=== PATIENT | female | born 1965 | race Caucasian/White ===

== ENCOUNTER 2016-12-17 21:31 | Emergency (ER) | payer SELFPAY ==
[2016-12-17 22:23] LABS: Hematocrit 37 % (35-47); Mean Corpuscular HGB Conc 32 g/dl (31-36); Mean Corpuscular Hemoglobin 28 pg (27-31); Mean Corpuscular Volume 86 fL (80-97); Mean Platelet Volume 11 um3 (7.4-10.4); Red Cell Distribution Width 15 % (10.5-15); White Blood Count 9.4 10^3/ul (3.5-10.8)
[2016-12-17 22:42] LABS: Albumin 4.2 g/dL (3.2-5.2); BUN/Creatinine Ratio 20.3 (8-20); Calcium 9.6 mg/dL (8.6-10.3); EGFR African American 139.3 (>60); EGFR Non-African American 108.3 (>60); Potassium 3.5 mmol/L (3.5-5.0); Total Bilirubin 0.3 mg/dL (0.2-1.0); Total Protein 7.2 g/dL (6.4-8.9)
--- NOTE | 2016-12-17 23:14 | ED ---
Tami Johnson Alok, scribed for Valentin Camacho MD on 12/17/16 at 2144 . Shortness of Breath - HPI Summary HPI Summary: 51F presents to the ED for a sudden onset of SOB while shopping minutes earlier. Pt states that her SOB lasted 30-45 seconds and felt like a "choking sensation" at her upper sternal. Pt also noted lightheadedness, shakiness and nausea. Pt denies CP today but notes CP last night while at rest. At present pt notes facial erythema and subjective fever. PMHx includes h/o anxiety w/panic attacks for which she takes prozac. Pt denies recent travel. - History of Current Complaint Chief Complaint: EDChestPainROMI Time Seen by Provider: 12/17/16 21:34 Hx Obtained From: Patient Onset/Duration: Sudden Onset, Lasting Minutes, Resolved Current Severity: Moderate Dyspnea At: Rest Aggrevating Factors: Nothing Alleviating Factors: Nothing Associated Signs & Symptoms: Chest Pain Unrelated to Cough - Allergy/Home Medications Allergies/Adverse Reactions: Allergies Allergy/AdvReac Type Severity Reaction Status Date / Time Latex Allergy Rash Verified 01/11/13 10:48 Atorvastatin [From Lipitor] AdvReac Severe Pain Verified 01/11/13 10:48 Dextromethorphan AdvReac Unknown Unknown Verified 01/11/13 10:48 [From NyQuil Nighttime Reaction Cold/Flu Medicine ] Details Doxylamine AdvReac Unknown Unknown Verified 01/11/13 10:48 [From NyQuil Nighttime Reaction Cold/Flu Medicine ] Details Ethanol AdvReac Unknown Unknown Verified 01/11/13 10:48 [From NyQuil Nighttime Reaction Cold/Flu Medicine ] Details Pseudoephedrine AdvReac Unknown Unknown Verified 01/11/13 10:48 [From Sudafed] Reaction Details PMH/Surg Hx/FS Hx/Imm Hx Endocrine/Hematology History: Denies: Hx Blood Disorders, Hx Diabetes, Hx Anemia Cardiovascular History: Reports: Hx Angina, Hx Hypercholesterolemia Denies: Hx Coronary Artery Disease, Hx Hypertension, Hx Myocardial Infarction , Hx Valvular Heart Disease Respiratory History: Denies: Hx Asthma, Hx Chronic Obstructive Pulmonary Disease (COPD) Neurological History: Reports: Hx Headaches - WITH ANESTHESIA, Hx Migraine - 3- 4X A MONTH Psychiatric History: Reports: Hx Anxiety - PANIC ATTACKS- OK ON MEDS - Cancer History Hx Chemotherapy: No Hx Radiation Therapy: No - Surgical History Surgery Procedure, Year, and Place: LAP BAND, 2007, [facility] [place]. HYSTERECTOMY, 2009, [facility] WISDOM TEETH 1985 Hx Anesthesia Reactions: Yes - NAUSEA Infectious Disease History: Denies: Traveled Outside the [place] in Last 30 Days - Family History Known Family History: Positive: Cardiac Disease, Other - yes - breast CA - Social History Occupation: Employed Full-time Lives: With Family Alcohol Use: None Substance Use Type: Reports: None Smoking Status (MU): Never Smoked Tobacco Have You Smoked in the Last Year: No Review of Systems Positive: Fever Positive: Chest Pain Positive: Shortness Of Breath Positive: Nausea Neurological: Other - lightheadedness All Other Systems Reviewed And Are Negative: Yes Physical Exam Triage Information Reviewed: Yes Vital Signs On Initial Exam: Initial Vitals Temp Pulse Resp Pulse Ox 99.5 F 96 18 100 12/17/16 21:32 12/17/16 21:32 12/17/16 21:32 12/17/16 21:32 Vital Signs Reviewed: Yes Appearance: Positive: Well-Appearing, No Pain Distress Skin: Positive: Other - Slightly sanjuana Head/Face: Positive: Normal Head/Face Inspection Eyes: Positive: Normal ENT: Positive: Normal ENT inspection Neck: Positive: Supple, Nontender Respiratory/Lung Sounds: Positive: Clear to Auscultation, Breath Sounds Present Cardiovascular: Positive: RRR Abdomen Description: Positive: Nontender, Soft Bowel Sounds: Positive: Present Musculoskeletal: Positive: Other - slight pitting edema both ankles Neurological: Positive: Normal Psychiatric: Positive: Normal, Affect/Mood Appropriate Diagnostics - Vital Signs Vital Signs Temp Pulse Resp Pulse Ox 12/17/16 21:32 99.5 F 96 18 100 - Laboratory Lab Results: Lab Results 12/17/16 12/17/16 12/17/16 Range/Units 22:14 22:14 22:14 WBC 9.4 (3.5-10.8) 10^3/ul RBC 4.30 (4.0-5.4) 10^6/ul Hgb 12.0 (12.0-16.0) g/dl Hct 37 (35-47) % MCV 86 (80-97) fL MCH 28 (27-31) pg MCHC 32 (31-36) g/dl RDW 15 (10.5-15) % Plt Count 144 L (150-450) 10^3/ul MPV 11 H (7.4-10.4) um3 Neut % (Auto) 70.2 (38-83) % Lymph % (Auto) 22.4 L (25-47) % [place] % (Auto) 4.8 (1-9) % Eos % (Auto) 1.3 (0-6) % Baso % (Auto) 1.3 (0-2) % Absolute Neuts (auto) 6.6 (1.5-7.7) 10^3/ul Absolute Lymphs (auto) 2.1 (1.0-4.8) 10^3/ul Absolute Monos (auto) 0.5 (0-0.8) 10^3/ul Absolute Eos (auto) 0.1 (0-0.6) 10^3/ul Absolute Basos (auto) 0.1 (0-0.2) 10^3/ul Absolute Nucleated RBC 0 10^3/ul Nucleated RBC % 0 D-Dimer, Quantitative < 200 (Less Than 230) ng/mL Sodium 136 (133-145) mmol/L Potassium 3.5 (3.5-5.0) mmol/L Chloride 103 (101-111) mmol/L Carbon Dioxide 26 (22-32) mmol/L Anion Gap 7 (2-11) mmol/L BUN 12 (6-24) mg/dL Creatinine 0.59 (0.51-0.95) mg/dL Est GFR ( Amer) 139.3 (>60) Est GFR (Non-Af Amer) 108.3 (>60) BUN/Creatinine Ratio 20.3 H (8-20) Glucose 122 H (70-100) mg/dL Lactic Acid (0.5-2.0) mmol/L Calcium 9.6 (8.6-10.3) mg/dL Total Bilirubin 0.30 (0.2-1.0) mg/dL AST 24 (13-39) U/L ALT 29 (7-52) U/L Alkaline Phosphatase 82 (34-104) U/L Troponin I 0.00 (<0.04) ng/mL Total Protein 7.2 (6.4-8.9) g/dL Albumin 4.2 (3.2-5.2) g/dL Globulin 3.0 (2-4) g/dL Albumin/Globulin Ratio 1.4 (1-3) 12/17/16 Range/Units 22:14 WBC (3.5-10.8) 10^3/ul RBC (4.0-5.4) 10^6/ul Hgb (12.0-16.0) g/dl Hct (35-47) % MCV (80-97) fL MCH (27-31) pg MCHC (31-36) g/dl RDW (10.5-15) % Plt Count (150-450) 10^3/ul MPV (7.4-10.4) um3 Neut % (Auto) (38-83) % Lymph % (Auto) (25-47) % [place] % (Auto) (1-9) % Eos % (Auto) (0-6) % Baso % (Auto) (0-2) % Absolute Neuts (auto) (1.5-7.7) 10^3/ul Absolute Lymphs (auto) (1.0-4.8) 10^3/ul Absolute Monos (auto) (0-0.8) 10^3/ul Absolute Eos (auto) (0-0.6) 10^3/ul Absolute Basos (auto) (0-0.2) 10^3/ul Absolute Nucleated RBC 10^3/ul Nucleated RBC % D-Dimer, Quantitative (Less Than 230) ng/mL Sodium (133-145) mmol/L Potassium (3.5-5.0) mmol/L Chloride (101-111) mmol/L Carbon Dioxide (22-32) mmol/L Anion Gap (2-11) mmol/L BUN (6-24) mg/dL Creatinine (0.51-0.95) mg/dL Est GFR ( Amer) (>60) Est GFR (Non-Af Amer) (>60) BUN/Creatinine Ratio (8-20) Glucose (70-100) mg/dL Lactic Acid 1.6 (0.5-2.0) mmol/L Calcium (8.6-10.3) mg/dL Total Bilirubin (0.2-1.0) mg/dL AST (13-39) U/L ALT (7-52) U/L Alkaline Phosphatase (34-104) U/L Troponin I (<0.04) ng/mL Total Protein (6.4-8.9) g/dL Albumin (3.2-5.2) g/dL Globulin (2-4) g/dL Albumin/Globulin Ratio (1-3) Result Diagrams: 12/17/16 22:14 12/17/16 22:14 Lab Statement: Any lab studies that have been ordered have been reviewed, and results considered in the medical decision making process. - Radiology CXR Xray Interpretation: No Acute Changes Radiology Interpretation Completed By: ED Physician - Dr. Camacho - EKG 2144 Cardiac Rate: NL - 86 bpm EKG Rhythm: Sinus Rhythm Course/Dx - Course Course Of Treatment: Ms. arroyo had the sudden onset of difficulty breathing and chest heaviness that did not last long. Her vitals are stable, she is symptom free and her labs are negative. She is awaiting delayed troponin. - Diagnoses Provider Diagnoses: Chest pain Discharge - Discharge Plan Condition: Stable Disposition: OTHER Discharge Disposition Comment: Signed out to Dr. Giron Patient Education Materials: Chest Pain (ED) Referrals: Gauri Bain MD [Primary Care Provider] - Additional Instructions: Please follow up with your doctor The documentation as recorded by the Tami sharma Alok accurately reflects the service I personally performed and the decisions made by me, Valentin Camacho MD.
[2016-12-18 05:19] VITALS: BP 107/39
--- NOTE | 2016-12-18 07:26 | RAD ---
INDICATION: Shortness of breath. COMPARISON: Comparison is made with a prior chest x-ray study from September 27, 2013. TECHNIQUE: A portable view of the chest was obtained. FINDINGS: Cardiac and mediastinal contours appear to be within normal limits. The lungs are underinflated and clear. No pleural effusion is seen. There is a [id number] dorsal scoliosis convex toward the right side. IMPRESSION: NO EVIDENCE FOR ACUTE DISEASE.
== END 2016-12-18 02:45 ==
LOC: ED 21:31
DX: R07.9 Chest pain, unspecified (principal); R05 Cough; R06.02 Shortness of breath; R50.9 Fever, unspecified; R11.0 Nausea
CPT/HCPCS: 36415; 71010; 80053; 83605; 84484; 85025; 85379; 93005; 99283

== ENCOUNTER 2018-09-06 18:17 | Emergency (ER) | payer BC ==
--- NOTE | 2018-09-06 21:13 | ED ---
Upper Extremity Pain - HPI Summary HPI Summary: 53-year-old female presents with right arm swelling today. She was sent from urgent care to rule out a blood clot. States that she was having increasing swelling to her arm. She denies any family history of blood clots. She admits to little warmth to the area. No redness. States she knows that she has never had this reaction before. No neck pain. is nonsmoker. Has no medical conditions. - History of Current Complaint Chief Complaint: EDExtremityUpper Stated Complaint: RT ARM PAIN AND SWOLLEN PER PT Time Seen by Provider: 09/06/18 20:38 - Allergies/Home Medications Allergies/Adverse Reactions: Allergies Allergy/AdvReac Type Severity Reaction Status Date / Time diphenhydramine Allergy Severe Agitation Verified 09/06/18 18:26 [From Benadryl] MS Atorvastatin AdvReac Severe Pain Verified 09/06/18 18:26 [From Lipitor] MS Dextromethorphan AdvReac Unknown Unknown Verified 09/06/18 18:26 [From NyQuil Nighttime Reaction Cold/Flu Medicine ] Details MS Doxylamine AdvReac Unknown Unknown Verified 09/06/18 18:26 [From NyQuil Nighttime Reaction Cold/Flu Medicine ] Details MS Ethanol AdvReac Unknown Unknown Verified 09/06/18 18:26 [From NyQuil Nighttime Reaction Cold/Flu Medicine ] Details MS Pseudoephedrine AdvReac Unknown Unknown Verified 09/06/18 18:26 [From Sudafed] Reaction Details PMH/Surg Hx/FS Hx/Imm Hx Endocrine/Hematology History: Denies: Hx Blood Disorders, Hx Diabetes, Hx Anemia Cardiovascular History: Reports: Hx Angina, Hx Hypercholesterolemia Denies: Hx Coronary Artery Disease, Hx Hypertension, Hx Myocardial Infarction , Hx Valvular Heart Disease Respiratory History: Denies: Hx Asthma, Hx Chronic Obstructive Pulmonary Disease (COPD) Neurological History: Reports: Hx Headaches - WITH ANESTHESIA, Hx Migraine - 3- 4X A MONTH Psychiatric History: Reports: Hx Anxiety - PANIC ATTACKS- OK ON MEDS - Cancer History Hx Chemotherapy: No Hx Radiation Therapy: No - Surgical History Surgery Procedure, Year, and Place: LAP BAND, 2006, [facility] [place]. [place]ST[place]CTOMY, 2009, [facility]. WISDOM TEETH 1985 Hx Anesthesia Reactions: Yes - NAUSEA Infectious Disease History: No Infectious Disease History: Denies: Traveled Outside the [place] in Last 30 Days - Family History Known Family History: Positive: Cardiac Disease, Other - yes - breast CA - Social History Alcohol Use: None Substance Use Type: Reports: None Smoking Status (MU): Never Smoked Tobacco Have You Smoked in the Last Year: No Review of Systems Negative: Fever Negative: Chest Pain Negative: Shortness Of Breath Positive: Edema - right arm All Other Systems Reviewed And Are Negative: Yes Physical Exam Triage Information Reviewed: Yes Vital Signs On Initial Exam: Initial Vitals Temp Pulse Resp BP Pulse Ox 98.2 F 67 14 156/84 97 09/06/18 18:21 09/06/18 18:21 09/06/18 18:21 09/06/18 18:21 09/06/18 18:21 Vital Signs Reviewed: Yes Appearance: Positive: Well-Appearing Skin: Positive: Warm, Dry, Other - ecchymosis type lesion to right forearm with some warmth but no erythema Head/Face: Positive: Normal Head/Face Inspection Eyes: Positive: Normal, Conjunctiva Clear ENT: Positive: Pharynx normal Respiratory/Lung Sounds: Positive: Clear to Auscultation, Breath Sounds Present Cardiovascular: Positive: Normal, RRR Musculoskeletal: Positive: Strength/ROM Intact - right arm, Other - good pulses , compartments soft, edema noted to right arm Neurological: Positive: Normal Psychiatric: Positive: Normal Diagnostics - Vital Signs Vital Signs Temp Pulse Resp BP Pulse Ox 09/06/18 18:21 98.2 F 67 14 156/84 97 - Laboratory Lab Statement: Any lab studies that have been ordered have been reviewed, and results considered in the medical decision making process. - Ultrasound No standard instances Ultrasound Interpretation Completed By: Radiologist Summary of Ultrasound Findings: IMPRESSION: No deep venous thrombosis. Course/Dx - Course Course Of Treatment: 53-year-old female presents with right arm swelling today. She was sent from urgent care to rule out a blood clot. States that she was having increasing swelling to her arm. She denies any family history of blood clots. She admits to little warmth to the area. No redness. States she knows that she has never had this reaction before. No neck pain. is nonsmoker. no injury Has no medical conditions. On exam has bruise like lesion of the right arm with surrounding edema. No erythema. Compartments are soft. Neurovascular intact. Ultrasound normal. Could be contusion versus plebitis. told if develop fever or spreading redness to return. Also told if develop worsening pain, numbness and tingling and limited range of motion for arm return. told to follow-up with primary. Patient understands and agrees with plan. - Diagnoses Differential Diagnosis/HQI/PQRI: Positive: Contusion, Other - dvt, plebitis Provider Diagnoses: Swelling of right upper extremity Discharge - Sign-Out/Discharge Documenting (check all that apply): Patient Departure Patient Received Moderate/Deep Sedation with Procedure: No - Discharge Plan Condition: Good Disposition: HOME Patient Education Materials: R.I.C.E. Treatment (ED) Referrals: Gauri Bain MD [Primary Care Provider] - Additional Instructions: follow up with primary within 5 days Ice, elevate Take tyenlol or ibuprofen every 6 hours Return to ED if develop fever, spreading redness, or any new or worsening symptoms - Billing Disposition and Condition Condition: GOOD Disposition: Home
[2018-09-06 21:49] VITALS: BP 132/74
== END 2018-09-06 21:48 | disposition home or self-care (01) ==
LOC: ED 18:17
DX: M79.89 Other specified soft tissue disorders (principal); Z88.8 Allergy status to other drugs, medicaments and biological substances; Z98.84 Bariatric surgery status
CPT/HCPCS: 99282